=== PATIENT | female | born 1950 | race Two or more races ===

== ENCOUNTER 2024-01-31 16:28 | Emergency (ER) | payer OTHER ==
[~2024-01-31] VITALS: Ht 160 cm; Wt 76.0 kg
--- NOTE | 2024-01-31 17:14 | ED.PDOC ---
History of Present Illness HPI Comments 73F presents to the ER w/ prior Hx of Diverticulitis, Tubal Ligation, and C- Section x2 which all may be associated to the c/c of ABD pain. Pt reports on having diffuse ABD pain since as well as /D, Body aches, fever and chills. PMHx of HTN and High Lipids. SHx of Tonsillectomy, Cataract Sx, and Left Ankle Sx. Family Hx of DM. Denies N/V, SOB, CP or other associated symptom's, modifiers, or recent injuries or sick contact at this time. 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 History Family History Family History: Reviewed,noncontributory to illness, Family hx of DM Social History Smoker: Non-Smoker Alcohol: Denies ETOH Use Drugs: Denies Drug Use Lives In: Home Constitutional: denies: chills, diaphoresis, fatigue, fever, malaise, sweats, weakness, others EENTM: denies: blurred vision, double vision, ear bleeding, ear discharge, ear drainage, ear pain, ear ringing, eye pain, eye redness, hearing loss, mouth pain, mouth swelling, nasal discharge, nose bleeding, nose congestion, nose pain, photophobia, tearing, throat pain, throat swelling, voice changes, others Respiratory: denies: cough, hemoptysis, orthopnea, SOB at rest, shortness of breath, SOB with excertion, stridor, wheezing, others Cardiovascular: denies: chest pain, dizzy spells, diaphoresis, Dyspnea on exertion, edema, irregular heart beat, left arm pain, lightheadedness, palpitations, PND, syncope, others Gastrointestinal: reports: abdominal pain, diarrhea; denies: abdomen distended, blood streaked bowels, constipated, dysphagia, difficulty swallowing, hematemesis, melena, nausea, poor appetite, poor fluid intake, rectal bleeding, rectal pain, vomiting, others Genitourinary: denies: abnormal vagina bleeding, burning, dyspareunia, dysuria, flank pain, frequency, hematuria, incontinence, pain, , vagina discharge, urgency, others Neurological: denies: dizziness, fainting, headache, left sided numbness, left sided weakness, numbness, paresthesia, pre-existing deficit, right sided numbness, right sided weakness, seizure, speech problems, tingling, tremors, weakness, others Musculoskeletal: denies: back pain, gout, joint pain, joint swelling, muscle pain, muscle stiffness, neck pain, others Integumetry: denies: bruises, change in color, change in hair/nails, dryness, laceration, lesions, lumps, rash, wounds, others Allergic/Immunocompromised: denies: Difficulty Healing, Frequent Infections, Hives, Itching, others Hematologic/Lymphatic: denies: anemia, blood clots, easy bleeding, easy bruising, swollen glands, others Endocrine: denies: excessive hunger, excessive sweating, excessive thirst, excessive urination, flushing, intolerance to cold, intolerance to heat, unexplained weight gain, unexplained weight loss, others Psychiatric: denies: anxiety, bipolar disorder, depression, hopeless, panic disorder, schizophrenia, sleepless, suicidal, others All Other Systems: Reviewed and Negative Physical Exam General Appearance: Moderate Distress HEENT: Normal ENT Inspection, Pharynx Normal, TMs Normal Neck: Full Range of Motion, Non-Tender, Normal, Normal Inspection Respiratory: Chest Non-Tender, Lungs Clear, No Accessory Muscle Use, No Respiratory Distress, Normal Breath Sounds Cardiovascular: No Edema, No JVD, No Murmur, No Gallop, Normal Peripheral Pulses, Regular Rate/Rhythm Breast Exam: Deferred Gastrointestinal: LLQ, No Organomegaly, No Pulsatile Mass, Normal Bowel Sounds, RLQ, Soft, Tenderness Genitalia: Deferred Pelvic: Deferred Rectal: Deferred Extremities: No calf tenderness, Normal capillary refill, Normal inspection, Normal range of motion, Non-tender, No pedal edema Musculoskeletal : Apperance: Normal Neurologic: Alert, table games dealer II-XII nml as Tested, No Motor Deficits, Normal Affect, Normal Mood, No Sensory Deficits Cerebellar Function: Normal Reflexes: Normal Skin: Dry, Normal Color, Warm Lymphatic: No Adenopathy Was a procedure done? Was a procedure done?: No Differential Dx Considerations may include: UTI, bowel obstruction, diverticulitis X-Ray, Labs, Meds, VS Vital Signs Date Time Temp Pulse Resp B/P (MAP) Pulse Ox O2 Delivery O2 Flow Rate FiO2 01/31/24 18:39 77 18 104/68 (80) 96 01/31/24 18:38 77 18 104/68 01/31/24 18:16 87 18 96 Room Air 01/31/24 18:16 87 18 122/70 (87) 96 01/31/24 18:15 87 18 122/70 01/31/24 16:35 98.5 95 18 122/73 (89) 94 Lab Test 01/31/24 17:47 01/31/24 17:33 Range/Units Urine Color Yellow Yellow Urine Clarity Turbid H Clear Urine pH 5.5 5.0-9.0 Urine Specific [place] 1.034 1.001-1.035 Urine Protein 2+ H Negative Urine Ketones Trace Negative Urine Blood Trace H Negative /uL Urine Nitrite Negative Negative Urine Bilirubin Negative Negative Urine Urobilinogen 2 H Negative mg/dL Urine Leukocyte Esterase 1+ Negative /uL Urine RBC 6 0 - 4 /hpf Urine WBC 78 0 - 5 /hpf Urine Squamous Epithelial Cells Few <5 /hpf Urine Bacteria None seen None Seen /hpf Urine Hyaline Casts Many 0 - 2 /lpf Urine Mucus Few None Seen Urine Glucose Trace Normal mg/dL White Blood Count 5.3 4.4-10.8 10^3/uL Red Blood Count 3.78 L 4.0-5.20 10^6/uL Hemoglobin 8.9 L 12.2-16.2 g/dL Hematocrit 28.2 L 36.0-46.0 % Mean Corpuscular Volume 74.7 L 80.0-100.0 fL Mean Corpuscular Hemoglobin 23.6 L 28.0-32.0 pg Mean Corpuscular Hemoglobin Concent 31.6 L 32.0-36.0 g/dL Red Cell Distribution Width 15.6 H 11.8-14.3 % Platelet Count 288 140-450 10^3/uL Mean Platelet Volume 8.6 6.9-10.8 fL Neutrophils (%) (Auto) 58.1 37.0-80.0 % Lymphocytes (%) (Auto) 21.1 10.0-50.0 % Monocytes (%) (Auto) 15.8 H 0.0-12.0 % Eosinophils (%) (Auto) 4.6 0.0-7.0 % Basophils (%) (Auto) 0.4 0.0-2.0 % Neutrophils # (Auto) 3.1 1.6-8.6 10 ^3/uL Lymphocytes # (Auto) 1.1 0.4-5.4 10 ^3/uL Monocytes # (Auto) 0.8 0-1.3 10 ^3/uL Eosinophils # (Auto) 0.2 0-0.8 10 ^3/uL Basophils # (Auto) 0 0-0.2 10 ^3/uL Nucleated Red Blood Cells 0.4 % Sodium Level 139 136-145 mmol/L Potassium Level 3.4 L 3.5-5.1 mmol/L Chloride Level 109 H 98-107 mmol/L Carbon Dioxide Level 22 20-31 mmol/L Anion Gap 8 5-15 Blood Urea Nitrogen 8 L 9-23 mg/dL Creatinine 0.92 0.550-1.02 mg/dL Glomerular Filtration Rate Calc 66 >90 mL/min BUN/Creatinine Ratio 8.7 L 10.0-20.0 Serum Glucose 142 H 74-106 mg/dL Calcium Level 9.3 8.7-10.4 mg/dL Total Bilirubin 0.3 0.2-1.0 mg/dL Aspartate Amino Transferase (AST) 18 13-40 U/L Alanine Aminotransferase (ALT) 23 7-40 U/L Alkaline Phosphatase 75 46-116 U/L Total Protein 6.9 5.7-8.2 g/dL Albumin 4.6 3.2-4.8 g/dL Lipase 54 H 12-53 U/L Current Medications Medications (Trade) Dose Ordered Sig/Geovanna Route Start Time Stop Time Status Last Admin Ondansetron HCl (Zofran) 4 mg ONCE ONCE IV 01/31/24 17:15 01/31/24 17:16 DC 01/31/24 18:14 Morphine Sulfate 4 mg ONCE ONCE IV 01/31/24 17:15 01/31/24 17:16 DC 01/31/24 18:15 IV Hep-Lock was established The patient was given morphine 4 mg IV push The patient was given Zofran 4 mg IV push The CBC shows anemia with a hemoglobin of 8.6 and hematocrit of 28.2 We did speak with [facility] and they are last recorded hemoglobin was over 12. The platelets are within normal limits The chemistry panel is within normal limits The CT scan of the abdomen and pelvis shows: IMPRESSION: 1. Large hiatal hernia with gaseous distention of the herniated portions of the stomach and areas of wall thickening of the stomach involved in the hernia. 2. Large amount of stool in the cecum, which is abnormally positioned, extending toward the anterior aspect of the central abdomen. 3. No small bowel obstruction. 4. Additional nonacute findings as detailed above. At this time we did contact [facility] and they are going to transfer the patient to their facility. The authorization #[id number] We did discuss the findings with the patient and they are in agreement with the management. The patient was being transferred at this time. The patient also has a UTI and is being given Rocephin 1 g IV piggyback Images Reviewed?: Images reviewed and evaluated by me Time of 1ST Reevaluation: 17:30 Reevaluation 1ST: Unchanged Patient Education/Counseling: Diagnosis, Treatment, Prognosis Family Education/Counseling: No Family Present Departure 1 Departure Time of Disposition: 20:55 Impression: Primary Impression: Intractable abdominal pain Additional Impressions: Abdominal hernia Qualified Codes: K46.9 - Unspecified abdominal hernia without obstruction or gangrene Urinary tract infection Qualified Codes: N30.00 - Acute cystitis without hematuria Disposition: 51 HOSPICE/MEDICAL FACILITY Condition: Fair Critical Care Note Critical Care Time?: No Stability Stability form required: Yes Stable for transfer: Intended for transfer (Health plan request transfer), To designated facility Heart Score Heart Score: Heart Score Response (Comments) Value History N/A 0 EKG N/A 0 Age N/A 0 Risk Factors N/A 0 Troponin N/A 0 Total 0 I personally scribed for WILBER SMITH MD ([email or web address]) on 01/31/24 at 17:14. Electronically submitted by Warner Ruiz ([email or web address]). WILBER SMITH MD Jan 31, 2024 17:14
[2024-01-31 17:49] LABS: Basophils # (auto) 0 10 ^3/uL (0-0.2); Eosinophils # (auto) 0.2 10 ^3/uL (0-0.8); Hemoglobin 8.9 g/dL (12.2-16.2); Lymphocytes # (auto) 1.1 10 ^3/uL (0.4-5.4); Monocytes # (auto) 0.8 10 ^3/uL (0-1.3); Neutrophils # (auto) 3.1 10 ^3/uL (1.6-8.6); White Blood Cell 5.3 10^3/uL (4.4-10.8)
[2024-01-31 17:49] LABS: Urine Bacteria None Seen /hpf (None Seen)
[2024-01-31 17:51] LABS: Basophils % (auto) 0.4 % (0.0-2.0); Eosinophils % (auto) 4.6 % (0.0-7.0); Hematocrit 28.2 % (36.0-46.0); Lymphocytes % (auto) 21.1 % (10.0-50.0); Mean Corpuscular Hemoglobin 23.6 pg (28.0-32.0); Mean Corpuscular Hgb Conc. 31.6 g/dL (32.0-36.0); Mean Corpuscular Volume 74.7 fL (80.0-100.0); Monocytes % (auto) 15.8 % (0.0-12.0); Neutrophils % (auto) 58.1 % (37.0-80.0); Nucleated Red Blood Cells % 0.4 %; Platelet Count (auto) 288 10^3/uL (140-450); Red Blood Cells 3.78 10^6/uL (4.0-5.20); Red Cell Distribution Width 15.6 % (11.8-14.3)
[2024-01-31 17:54] LABS: Urine Blood TRACE /uL (Negative); Urine Clarity Turbid (Clear); Urine Color Yellow (Yellow); Urine Hyaline Cast MANY /lpf (0 - 2); Urine Mucus FEW (None Seen); Urine Protein, UAD 2+ (Negative); Urine Specific Gravity 1.034 (1.001-1.035); Urine Urobilinogen 2 mg/dL (Negative); Urine WBC 78 /hpf (0 - 5); Urine pH 5.5 (5.0-9.0)
[2024-01-31 17:58] LABS: Alanine Aminotransferase 23 U/L (7-40); Albumin 4.6 g/dL (3.2-4.8); Alkaline Phosphatase 75 U/L (46-116); Anion Gap 8 (5-15); Aspartate Aminotransferase 18 U/L (13-40); BUN/Creatinine Ratio 8.7 (10.0-20.0); Calcium 9.3 mg/dL (8.7-10.4); Carbon Dioxide 22 mmol/L (20-31); Sodium 139 mmol/L (136-145)
[2024-01-31 17:59] LABS: Total Protein 6.9 g/dL (5.7-8.2)
[2024-01-31 18:07] LABS: Chloride 109 mmol/L (98-107); Glucose 142 mg/dL (74-106); Potassium 3.4 mmol/L (3.5-5.1)
[2024-01-31 18:08] LABS: Bilirubin, Total 0.3 mg/dL (0.2-1.0); Blood Urea Nitrogen 8 mg/dL (9-23)
[2024-01-31] MEDS: ONDANSETRON HCL 4 MG/2 ML VIAL IV ONE ×2 (18:14→21:33)
[2024-01-31] MEDS: MORPHINE SULFATE 4 MG/ML SYR/VIAL IV ONE (18:15)
--- NOTE | 2024-01-31 18:15 | DVH ---
CLINICAL INFORMATION: 73 years old, Female; pain. TECHNIQUE: Axial CT images of the abdomen and pelvis were obtained without IV contrast. Coronal and sagittal reformatted images were obtained, reviewed, and stored. Evaluation of the parenchymal organs is limited without IV contrast. Evaluation of the bowel and mesentery is limited without oral contra st. All CT scans at this medical facility are performed using dose modulation techniques as appropria te to a performed exam including the following: Automated exposure control was utilized; adjustment o f the MA and/or KV according to patient size; and use of iterative reconstruction technique. CTDIvol = 10.17, 0.07, 0.07 mGy DLP = 554.04 mGy-cm COMPARISON: None FINDINGS: Lung bases: Large hiatal hernia. Gaseous distention of the herniated portions of the stomach wall thi ckening portions of the stomach involved in the hernia. Liver: Grossly unremarkable in its noncontrast enhanced appearance. No abnormal density or focal les ion identified. Biliary: No calcified gallstones or biliary ductal dilatation. Spleen: Unremarkable. Pancreas: Grossly unremarkable in its noncontrast enhanced appearance. Adrenal glands: Unremarkable. No mass. Kidneys: No hydronephrosis. No renal or ureteral calculi are seen. Bilateral renal cysts, with the la rgest measuring up to 3.6 cm at the superior pole of the left kidney. Aorta/Vascular: Moderate atherosclerotic calcification. No abdominal aortic aneurysm. Retroperitoneum: No mass or lymphadenopathy. Bowel/mesentery: No small bowel obstruction. Appendix is visualized and appears unremarkable. There is a large amount of stool in the cecum ascending colon. The cecum extends medially toward the anteri or aspect of the central abdomen, with the appendix also seen in the anterior aspect of the central a bdomen. Pelvic organs: Grossly unremarkable. Bladder: Unremarkable. No mass. Abdominal wall: No mass or hernia. Bones: No acute fracture or suspicious intraosseous lesion. IMPRESSION: 1. Large hiatal hernia with gaseous distention of the herniated portions of the stomach and areas of wall thickening of the stomach involved in the hernia. 2. Large amount of stool in the cecum, which is abnormally positioned, extending toward the anterior aspect of the central abdomen. 3. No small bowel obstruction. 4. Additional nonacute findings as detailed above.
[2024-01-31 18:27] LABS: Lipase 54 U/L (12-53)
[2024-01-31] MEDS: HYDROmorphone HCL 2 MG/ML VL/or syr IV ONE (19:20)
[2024-01-31] MEDS ORDERED: cefTRIAXone 1GM/50ML D5W 50 ML IV ONE (21:00)
[2024-01-31] MEDS: cefTRIAXone 1GM/50ML D5W 50 ML IV ONE (21:33)
[2024-01-31 21:50] VITALS: PULSE 76; RESP 16; O2SAT 95
[2024-01-31 22:10] VITALS: BP 139/51; PULSE 76; RESP 16; TEMP 97.2; O2SAT 95
[2024-01-31] MEDS: PROCHLORPERAZINE EDISYLATE 5 MG/ML 2ML VIAL IV ONE (22:22)
== END 2024-01-31 22:13 | disposition short-term general hospital (02) ==
LOC: EDBD 16:28 → ER 16:28
DX: N39.0 Urinary tract infection, site not specified (principal); K46.9 Unspecified abdominal hernia without obstruction or gangrene; I10 Essential (primary) hypertension; E78.5 Hyperlipidemia, unspecified; Z90.89 Acquired absence of other organs; Z98.890 Other specified postprocedural states
CPT/HCPCS: 36415; 74176; 80053; 81001; 83690; 85025; 96365; 96375; 96376; 99285; J0696; J0780; J1171; J2270; J2405